=== PATIENT | male | born 1950 | race Caucasian/White ===

== ENCOUNTER 2018-10-25 10:42 | Outpatient (CLI) | payer MEDICARE, MEDICAID ==
--- NOTE | 2018-10-25 14:35 | PET ---
Radionucleotide PET scan with CT attenuation correction HISTORY: Left lung cancer. Right lung nodule. COMPARISON: CT chest from [facility] dated 06/20/2018. FINDINGS: Physiologic uptake of radiotracer throughout the enteric system and along each urinary trac t. Increased muscular uptake is present at the right posterior neck and along the right mid to lower back posterior paraspinal musculature. No hypermetabolic nodules are apparent within the right lower lobe in region of abnormality on prior CT chest. There is mild residual scarring in the right lower lobe where a gas and fluid containing cyst was present on the previous CT. The cyst has resolved. No hypermetabolic activity. Noncontrast CT attenuation correction images best demonstrate left pneumonectomy with small amount of residual left pleural fluid and pleural thickening. Calcification throughout the arterial structures. Prominent degenerative changes lumbar spine. IMPRESSION: No evidence of recurrent or metastatic neoplasm. The small nodule within the right lower lobe is no longer visible. The gas and fluid containing cysti c structure of the right lower lobe has resolved scarring. Atherosclerosis. Status post left pneumonectomy.
== END 2018-10-25 10:43 | disposition home or self-care (01) ==
LOC: PET 10:42
DX: C34.32 Malignant neoplasm of lower lobe, left bronchus or lung (principal); R91.1 Solitary pulmonary nodule; I70.0 Atherosclerosis of aorta; Z90.2 Acquired absence of lung [part of]
CPT/HCPCS: 78815; A9552

== ENCOUNTER 2020-02-02 09:42 | Outpatient (CLI) | payer MEDICARE, MEDICAID ==
--- NOTE | 2020-02-02 11:28 | PET ---
EXAM: PET/CT HISTORY: History of lung cancer, shortness of breath and chronic bronchitis TECHNIQUE: PET scanning with CT attenuation correction was performed from the base of the brain to the proximal thighs following the intravenous administration of 12.1 millicuries [id number]. CT images were obtained for attenuation correction purposes. COMPARISON: PET/CT dated October 25, [address] of the thorax dated June 20, 2018 FINDINGS: Biodistribution:The biodistribution for the examination is acceptable. There is some mild misregistra tion of the head images with a CT images due to patient motion. [id number] background skeletal muscle uptake is evident particularly within the upper neck and laryngeal region likely due to muscular activity. Head and neck: There is appropriate background activity within the brain. No hypermetabolic lymphaden opathy is evident. There is a focus of increased hypermetabolic uptake involving the upper midline soft palate near the region of the uvula with a peak activity of 6.08 and a mean activity of 5.23. Thorax: No hypermetabolic pulmonary lesion, pleural effusion or lymphadenopathy is present. There is postprocedural change of a left pneumonectomy and stable chronic left-sided pleural effusion. No hypermetabolic activity is seen involving the left thorax. There is been complete resolution of the s carlike opacity seen within the right lower lobe. Abdomen and pelvis: There is expected background activity within the GI and systems. No hypermetab olic mass, lymphadenopathy or ascites is present. Osseous structures and skin: No hypermetabolic skin or osseous lesion is identified. IMPRESSION: 1. No hypermetabolic pulmonary nodule or pleural effusion is demonstrated. There is stable postproced ural change of a complete left pneumonectomy with chronic left-sided pleural effusion. No evidence to suggest hypermetabolic metastatic disease. 2. New focus of hypermetabolic uptake involving the midline soft palate, near the uvula, may reflect a focal area of a pharyngitis. Pharyngeal malignant lesion cannot be entirely excluded. Recommend correlation with direct visualization.
== END 2020-02-02 09:43 | disposition home or self-care (01) ==
LOC: PET 09:42
DX: J42 Unspecified chronic bronchitis (principal); R06.02 Shortness of breath; J90 Pleural effusion, not elsewhere classified; Z85.118 Personal history of other malignant neoplasm of bronchus and lung; Z90.2 Acquired absence of lung [part of]
CPT/HCPCS: 78815; A9552

== ENCOUNTER 2024-11-30 18:03 | Inpatient (IN) | payer OTHER, MEDICAID ==
[~2024-11-30 18:03] MED LIST: Iopamidol-370 76% 500 ML MDV (1 ML CHARGE) ONE
[2024-11-30] MEDS ORDERED: Magnesium 2 GM/50 ML BAG (IN WATER) ONE (18:22)
[2024-11-30] MEDS ORDERED: Albuterol 2.5 MG (3 mL) NEB ONE (18:22)
[2024-11-30 18:46] LABS: #Basophils 0.04 10x3/uL (0.0-0.2); #Eosinophils 0.05 10x3/uL (0.0-0.7); #Monocytes 0.39 10x3/uL (0.11-0.59); #Neutrophils 10.03 10x3/uL (1.40-6.50); %Basophils 0.3 % (0.0-1.0); %Eosinophils 0.4 % (0.0-10.0); %Lymphocytes 10.5 % (21.0-51.0); %Monocytes 3.3 % (0.0-10.0); %Neutrophils 85.2 % (42.0-75.0); Hematocrit 39.1 % (42.0-52.0); Hemoglobin 12.9 g/dL (14.0-18.0); Mean Corpuscular Hemoglobin 33.5 pg (27.0-31.0); Mean Corpuscular Volume 101.6 fL (78.0-98.0); Platelet Count 220 10x3/uL (130-400); Red Blood Cell (RBC) Count 3.85 mill/uL (4.70-6.10); White Blood Cell (WBC) Count 11.77 10x3/uL (4.8-10.8)
[2024-11-30] MEDS ORDERED: Ketorolac Tromethamine 30 MG (1 mL) VIAL ONE (19:06)
[2024-11-30 19:10] LABS: ALT (SGPT) 9 U/L (Less than 45); AST (SGOT) 16 U/L (11-34); Albumin 3.7 g/dL (3.1-4.5); Alkaline Phosphatase 64 U/L (40-110); Anion Gap 14 mmol/L (10-20); BUN (Urea Nitrogen) 12 mg/dL (8.4-25.7); Bilirubin, Total 0.9 mg/dL (0.3-1.2); Calc. Creatinine Clearance 0 mL/min (70-130); Calcium 8.8 mg/dL (7.8-10.44); Carbon Dioxide 24 mmol/L (23-31); Chloride 98 mmol/L (98-107); Globulin 2.9 g/dL (2.4-3.5); Glucose 101 mg/dL (83-110); Magnesium 1.8 mg/dL (1.6-2.6); Potassium 3.5 mmol/L (3.5-5.1); Sodium 132 mmol/L (136-145)
[2024-11-30] MEDS ORDERED: cefTRIAXone (ROCEPHIN) 1 GM VIAL ONE (19:53)
[2024-11-30] MEDS ORDERED: Azithromycin 500 MG VIAL ONE (20:31)
[2024-11-30] MEDS ORDERED: Ondansetron PF 4 MG/2 ML Vial IVP PRN (21:18)
[2024-11-30 23:11] VITALS: BMI 21.5
[2024-12-01] MEDS ORDERED: Acetaminophen/Codeine 30-300mg Tablet PO PRN (00:21)
[2024-12-01] MEDS: Gabapentin 300 MG CAP PO SCH ×2 (01:46→10:55)
[2024-12-01] MEDS: ALPRAZolam 0.25 MG TAB PO SCH (04:18)
[2024-12-01 05:00] LABS: Hematocrit 30.8 % (42.0-52.0); Hemoglobin 10.2 g/dL (14.0-18.0); Mean Corpuscular Hemoglobin 33.9 pg (27.0-31.0); Mean Corpuscular Volume 102.3 fL (78.0-98.0); Platelet Count 172 10x3/uL (130-400); Red Blood Cell (RBC) Count 3.01 mill/uL (4.70-6.10); White Blood Cell (WBC) Count 4.22 10x3/uL (4.8-10.8)
[2024-12-01 06:16] LABS: Anion Gap 13 mmol/L (10-20); BUN (Urea Nitrogen) 13 mg/dL (8.4-25.7); Calc. Creatinine Clearance 52 mL/min (70-130); Calcium 7.9 mg/dL (7.8-10.44); Carbon Dioxide 23 mmol/L (23-31); Chloride 103 mmol/L (98-107); Glucose 135 mg/dL (83-110); Magnesium 2.3 mg/dL (1.6-2.6); Potassium 4.2 mmol/L (3.5-5.1); Sodium 135 mmol/L (136-145)
[2024-12-01] MEDS: Famotidine 20 MG TAB PO SCH (10:51)
[2024-12-01 14:48] VITALS: BMI 21.5
[2024-12-01] MEDS: cefTRIAXone\\ROCEPHIN 1 GM in Sodium Chloride 0.9% 100 ML IVPB SCH (19:48)
[2024-12-01] MEDS: Enoxaparin 40 MG (0.4 mL) SYRINGE SC SCH (20:55)
[2024-12-01] MEDS: Azithromycin 500 MG in Sodium Chloride 0.9% 250 ML 250 ML IVPB SCH (20:56)
[2024-12-02] MEDS: Lisinopril 20 MG TAB PO SCH (12:06)
[2024-12-03 04:54] LABS: Anion Gap 11 mmol/L (10-20); BUN (Urea Nitrogen) 21 mg/dL (8.4-25.7); Calc. Creatinine Clearance 54 mL/min (70-130); Calcium 8.7 mg/dL (7.8-10.44); Carbon Dioxide 29 mmol/L (23-31); Chloride 98 mmol/L (98-107); Glucose 115 mg/dL (83-110); Potassium 5.0 mmol/L (3.5-5.1); Sodium 133 mmol/L (136-145)
[2024-12-03] MEDS: Lisinopril 20 MG TAB PO SCH (09:35)
[2024-12-03] MEDS: Calcium Carbonate 500 MG ChewTAB PO SCH (22:50)
[2024-12-04] MEDS ORDERED: Hyaluronidase, Human Recomb. 150 UNITS/ML VIAL SC SCH (07:00)
[2024-12-05] MEDS: predniSONE 20 MG TAB PO SCH (08:28)
[2024-12-05] MEDS: Calcium Carbonate 500 MG ChewTAB PO PRN (08:28)
[2024-12-06 04:59] LABS: #Basophils Less than 0.03 10x3/uL (0.0-0.2); #Eosinophils 0.03 10x3/uL (0.0-0.7); #Monocytes 1.44 10x3/uL (0.11-0.59); #Neutrophils 6.22 10x3/uL (1.40-6.50); %Basophils 0.0 % (0.0-1.0); %Eosinophils 0.3 % (0.0-10.0); %Lymphocytes 27.9 % (21.0-51.0); %Monocytes 13.4 % (0.0-10.0); %Neutrophils 58.0 % (42.0-75.0); Hematocrit 39.7 % (42.0-52.0); Hemoglobin 13.5 g/dL (14.0-18.0); Mean Corpuscular Hemoglobin 33.3 pg (27.0-31.0); Mean Corpuscular Volume 97.8 fL (78.0-98.0); Platelet Count 250 10x3/uL (130-400); Red Blood Cell (RBC) Count 4.06 mill/uL (4.70-6.10); White Blood Cell (WBC) Count 10.72 10x3/uL (4.8-10.8)
[2024-12-06 06:10] LABS: Anion Gap 11 mmol/L (10-20); BUN (Urea Nitrogen) 32 mg/dL (8.4-25.7); Calc. Creatinine Clearance 49 mL/min (70-130); Calcium 9.5 mg/dL (7.8-10.44); Carbon Dioxide 28 mmol/L (23-31); Chloride 90 mmol/L (98-107); Glucose 86 mg/dL (83-110); Potassium 4.1 mmol/L (3.5-5.1); Sodium 125 mmol/L (136-145)
[2024-12-07 05:48] LABS: #Basophils Less than 0.03 10x3/uL (0.0-0.2); #Eosinophils 0.03 10x3/uL (0.0-0.7); #Monocytes 1.16 10x3/uL (0.11-0.59); #Neutrophils 5.65 10x3/uL (1.40-6.50); %Basophils 0.0 % (0.0-1.0); %Eosinophils 0.3 % (0.0-10.0); %Lymphocytes 27.9 % (21.0-51.0); %Monocytes 12.2 % (0.0-10.0); %Neutrophils 59.2 % (42.0-75.0); Hematocrit 36.4 % (42.0-52.0); Hemoglobin 12.7 g/dL (14.0-18.0); Mean Corpuscular Hemoglobin 33.8 pg (27.0-31.0); Mean Corpuscular Volume 96.8 fL (78.0-98.0); Platelet Count 255 10x3/uL (130-400); Red Blood Cell (RBC) Count 3.76 mill/uL (4.70-6.10); White Blood Cell (WBC) Count 9.54 10x3/uL (4.8-10.8)
[2024-12-07 06:15] LABS: Anion Gap 13 mmol/L (10-20); BUN (Urea Nitrogen) 37 mg/dL (8.4-25.7); Calc. Creatinine Clearance 53 mL/min (70-130); Calcium 8.5 mg/dL (7.8-10.44); Carbon Dioxide 23 mmol/L (23-31); Chloride 91 mmol/L (98-107); Glucose 79 mg/dL (83-110); Potassium 4.3 mmol/L (3.5-5.1); Sodium 123 mmol/L (136-145)
[2024-12-07 10:53] LABS: Osmolality, Urine 575 mOsm/kg (50-1200)
[2024-12-08 04:40] LABS: #Basophils Less than 0.03 10x3/uL (0.0-0.2); #Eosinophils 0.03 10x3/uL (0.0-0.7); #Monocytes 0.97 10x3/uL (0.11-0.59); #Neutrophils 4.18 10x3/uL (1.40-6.50); %Basophils 0.1 % (0.0-1.0); %Eosinophils 0.4 % (0.0-10.0); %Lymphocytes 33.0 % (21.0-51.0); %Monocytes 12.4 % (0.0-10.0); %Neutrophils 53.5 % (42.0-75.0); Hematocrit 36.3 % (42.0-52.0); Hemoglobin 12.5 g/dL (14.0-18.0); Mean Corpuscular Hemoglobin 33.7 pg (27.0-31.0); Mean Corpuscular Volume 97.8 fL (78.0-98.0); Platelet Count 261 10x3/uL (130-400); Red Blood Cell (RBC) Count 3.71 mill/uL (4.70-6.10); White Blood Cell (WBC) Count 7.82 10x3/uL (4.8-10.8)
[2024-12-08 04:57] LABS: Osmolality, Serum 273 mOsm/kg (280-301)
[2024-12-08 05:09] LABS: Anion Gap 9 mmol/L (10-20); BUN (Urea Nitrogen) 40 mg/dL (8.4-25.7); Calc. Creatinine Clearance 46 mL/min (70-130); Calcium 8.6 mg/dL (7.8-10.44); Carbon Dioxide 27 mmol/L (23-31); Chloride 94 mmol/L (98-107); Glucose 74 mg/dL (83-110); Potassium 4.3 mmol/L (3.5-5.1); Sodium 126 mmol/L (136-145)
[2024-12-08] MEDS: Albumin 25% 25 GM (100 mL) BOT IVPB SCH (10:28)
[2024-12-09 05:31] LABS: Anion Gap 12 mmol/L (10-20); BUN (Urea Nitrogen) 36 mg/dL (8.4-25.7); Calc. Creatinine Clearance 52 mL/min (70-130); Calcium 8.5 mg/dL (7.8-10.44); Carbon Dioxide 25 mmol/L (23-31); Chloride 99 mmol/L (98-107); Glucose 77 mg/dL (83-110); Potassium 4.4 mmol/L (3.5-5.1); Sodium 132 mmol/L (136-145)
[2024-12-09] MEDS: predniSONE 20 MG TAB PO SCH (09:39)
[2024-12-10 05:25] LABS: Anion Gap 10 mmol/L (10-20); BUN (Urea Nitrogen) 32 mg/dL (8.4-25.7); Calc. Creatinine Clearance 50 mL/min (70-130); Calcium 8.5 mg/dL (7.8-10.44); Carbon Dioxide 25 mmol/L (23-31); Chloride 100 mmol/L (98-107); Glucose 79 mg/dL (83-110); Potassium 4.4 mmol/L (3.5-5.1); Sodium 131 mmol/L (136-145)
[2024-12-10 11:51] VITALS: BP 111/86; TEMP 98.2
== END 2024-12-10 14:45 | DRG 189 ==
LOC: ERS 18:03 → INTOOBSV 21:18 → OBSVTOIN 21:18 → 2NO 21:18
PROVIDERS: ADMIT Student in an Organized Health Care Education/Training Program; ATTEND Student in an Organized Health Care Education/Training Program
PROC: 3E03329 Introduction of Other Anti-infective into Peripheral Vein, Percutaneous Approach (ICD-10-PCS; principal; 2024-11-30)
PROC: 30233J1 Transfusion of Nonautologous Serum Albumin into Peripheral Vein, Percutaneous Approach (ICD-10-PCS; 2024-11-30)
DX: J96.01 Acute respiratory failure with hypoxia (principal); I21.A1 Myocardial infarction type 2; J44.1 Chronic obstructive pulmonary disease with (acute) exacerbation; E87.20 Acidosis, unspecified; I47.20 Ventricular tachycardia, unspecified; E22.2 Syndrome of inappropriate secretion of antidiuretic hormone; N17.9 Acute kidney failure, unspecified; G47.00 Insomnia, unspecified; M79.2 Neuralgia and neuritis, unspecified; E03.9 Hypothyroidism, unspecified; F17.210 Nicotine dependence, cigarettes, uncomplicated; F41.9 Anxiety disorder, unspecified; I44.4 Left anterior fascicular block; E86.9 Volume depletion, unspecified; J43.9 Emphysema, unspecified; E87.8 Other disorders of electrolyte and fluid balance, not elsewhere classified; G25.0 Essential tremor; N18.30 Chronic kidney disease, stage 3 unspecified; I12.9 Hypertensive chronic kidney disease with stage 1 through stage 4 chronic kidney disease, or unspecified chronic kidney disease; D63.1 Anemia in chronic kidney disease; F32.A Depression, unspecified; Z85.038 Personal history of other malignant neoplasm of large intestine; Z92.21 Personal history of antineoplastic chemotherapy; Z90.2 Acquired absence of lung [part of]; Z98.890 Other specified postprocedural states
CPT/HCPCS: 36415; 36416; 71045; 71275; 80048; 80053; 80307; 83605; 83735; 83880; 83930; 83935; 84100; 84300; 84443; 84484; 85025; 85027; 87040; 87428; 93005; 93306; 94640; 96365; 96367; 96375; J0456; J0696; J1650; J1885; J2919; J3475; J7030; J7050; J7512; J7611; J7620; P9047; Q0162; Q9967

== ENCOUNTER 2025-02-23 21:37 | Inpatient (IN) | payer OTHER ==
[2025-02-23 22:41] LABS: #Basophils 0.04 10x3/uL (0.0-0.2); #Eosinophils Less than 0.03 10x3/uL (0.0-0.7); #Monocytes 0.91 10x3/uL (0.11-0.59); #Neutrophils 9.18 10x3/uL (1.40-6.50); %Basophils 0.4 % (0.0-1.0); %Eosinophils 0.1 % (0.0-10.0); %Lymphocytes 10.5 % (21.0-51.0); %Monocytes 8.0 % (0.0-10.0); %Neutrophils 80.8 % (42.0-75.0); Hematocrit 37.6 % (42.0-52.0); Hemoglobin 13.2 g/dL (14.0-18.0); Mean Corpuscular Hemoglobin 33.9 pg (27.0-31.0); Mean Corpuscular Volume 96.7 fL (78.0-98.0); Platelet Count 247 10x3/uL (130-400); Red Blood Cell (RBC) Count 3.89 mill/uL (4.70-6.10); White Blood Cell (WBC) Count 11.35 10x3/uL (4.8-10.8)
[2025-02-23 22:58] LABS: ALT (SGPT) 12 U/L (Less than 45); AST (SGOT) 32 U/L (11-34); Albumin 4.4 g/dL (3.1-4.5); Alkaline Phosphatase 75 U/L (40-110); Anion Gap 21 mmol/L (10-20); BUN (Urea Nitrogen) 17 mg/dL (8.4-25.7); Bilirubin, Total 1.6 mg/dL (0.3-1.2); Calc. Creatinine Clearance 0 mL/min (70-130); Calcium 9.8 mg/dL (7.8-10.44); Carbon Dioxide 20 mmol/L (23-31); Chloride 102 mmol/L (98-107); Globulin 3.2 g/dL (2.4-3.5); Glucose 101 mg/dL (83-110); Potassium 4.5 mmol/L (3.5-5.1); Sodium 138 mmol/L (136-145)
[2025-02-23 23:50] LABS: Actual Bicarbonate (HCO3v) 22.2 mEq/L (22-28); Base Excess -2.6 mEq/L (-2.0 to +3.0); Calcium, Ionized (venous) 1.13 mmol/L (1.16-1.32); Chloride (VBG) 100 mmol/L (98-106); Hematocrit-VBG 39 % (42.0-52.0); Hemoglobin (Hb) 13.4 g/dL (12.6-17.4); Potassium (VBG) 3.82 mmol/L (3.70-5.30); Sodium 137 mmol/L (133-146)
[2025-02-24] MEDS ORDERED: Ondansetron PF 4 MG/2 ML Vial IVP PRN (01:45)
[2025-02-24] MEDS ORDERED: Acetaminophen 325 MG TAB PO PRN (01:45)
[2025-02-24] MEDS ORDERED: cefTRIAXone (ROCEPHIN) 1 GM VIAL ONE (02:13)
[2025-02-24 02:22] LABS: #Basophils Less than 0.03 10x3/uL (0.0-0.2); #Eosinophils Less than 0.03 10x3/uL (0.0-0.7); #Monocytes 0.13 10x3/uL (0.11-0.59); #Neutrophils 8.35 10x3/uL (1.40-6.50); %Basophils 0.2 % (0.0-1.0); %Eosinophils 0.0 % (0.0-10.0); %Lymphocytes 6.4 % (21.0-51.0); %Monocytes 1.4 % (0.0-10.0); %Neutrophils 91.7 % (42.0-75.0); Hematocrit 35.2 % (42.0-52.0); Hemoglobin 12.0 g/dL (14.0-18.0); Mean Corpuscular Hemoglobin 33.7 pg (27.0-31.0); Mean Corpuscular Volume 98.9 fL (78.0-98.0); Platelet Count 216 10x3/uL (130-400); Red Blood Cell (RBC) Count 3.56 mill/uL (4.70-6.10); White Blood Cell (WBC) Count 9.11 10x3/uL (4.8-10.8)
[2025-02-24 03:15] LABS: ALT (SGPT) 10 U/L (Less than 45); AST (SGOT) 27 U/L (11-34); Albumin 4.0 g/dL (3.1-4.5); Alkaline Phosphatase 68 U/L (40-110); Anion Gap 16 mmol/L (10-20); BUN (Urea Nitrogen) 19 mg/dL (8.4-25.7); Bilirubin, Total 1.1 mg/dL (0.3-1.2); Calc. Creatinine Clearance 0 mL/min (70-130); Calcium 9.1 mg/dL (7.8-10.44); Carbon Dioxide 21 mmol/L (23-31); Chloride 104 mmol/L (98-107); Globulin 2.8 g/dL (2.4-3.5); Glucose 161 mg/dL (83-110); Potassium 3.6 mmol/L (3.5-5.1); Sodium 137 mmol/L (136-145)
[2025-02-24 04:17] VITALS: BMI 20.7
[2025-02-24] MEDS: cefTRIAXone\\ROCEPHIN 2 GM in Sodium Chloride 0.9% 100 ML IVPB SCH (06:01)
[2025-02-24] MEDS ORDERED: Famotidine 20 MG TAB ONE (08:35)
[2025-02-24] MEDS: Famotidine 20 MG TAB PO SCH (08:40)
[2025-02-24] MEDS: Enoxaparin 40 MG (0.4 mL) SYRINGE SC SCH (08:40)
[2025-02-24] MEDS: Famotidine/PF 20 mg/2ml Vial SLOW IVP SCH (08:41)
[2025-02-24] MEDS ORDERED: Iopamidol-370 76% 500 ML MDV (1 ML CHARGE) ONE (12:03)
[2025-02-24 12:22] LABS: Glucose, Urine (Dipstick) Negative (Negative); Leukocyte Negative (Negative); Protein, Urine (Dipstick) Negative (Neg-Trace); Specific Gravity, Urine 1.020 (1.005-1.030)
[2025-02-24 12:26] LABS: Bacteria/HPF None Seen HPF (None Seen); RBC/HPF 0-3 HPF (0-3); WBC/HPF 0-3 HPF (0-3)
[2025-02-24] MEDS ORDERED: Azithromycin 500 MG VIAL ONE (14:57)
[2025-02-24] MEDS: Azithromycin 500 MG in Sodium Chloride 0.9% 250 ML 250 ML IVPB SCH ×2 (15:21→16:21)
[2025-02-24] MEDS: Mometasone 100 MCG/Formoterol 5 MCG 120 PUFF INHALER INH SCH (18:41)
[2025-02-24] MEDS: Acetaminophen/Codeine 30-300mg Tablet PO PRN (20:31)
[2025-02-25] MEDS: Lisinopril 20 MG TAB PO SCH (09:50)
[2025-02-26] MEDS: Azithromycin 500 MG in Sodium Chloride 0.9% 250 ML 250 ML IVPB SCH (10:24)
[2025-02-26 11:15] VITALS: BP 131/64; TEMP 98.2
== END 2025-02-26 15:30 | disposition home or self-care (01) | DRG 189 ==
LOC: ERS 21:37 → ERHOLD 02-24 01:43 → 2NO 02-24 15:07
PROVIDERS: ADMIT Internal Medicine; ATTEND Internal Medicine
DX: J96.21 Acute and chronic respiratory failure with hypoxia (principal); G93.41 Metabolic encephalopathy; J44.1 Chronic obstructive pulmonary disease with (acute) exacerbation; F32.A Depression, unspecified; E03.9 Hypothyroidism, unspecified; I10 Essential (primary) hypertension; Z85.118 Personal history of other malignant neoplasm of bronchus and lung; Z79.890 Hormone replacement therapy; D64.9 Anemia, unspecified; F39 Unspecified mood [affective] disorder; Z99.81 Dependence on supplemental oxygen; Z98.890 Other specified postprocedural states; F41.9 Anxiety disorder, unspecified; Z87.891 Personal history of nicotine dependence; M79.2 Neuralgia and neuritis, unspecified
CPT/HCPCS: 36415; 70450; 71045; 71275; 80053; 81001; 82805; 83605; 83880; 84145; 84484; 85025; 87040; 93005; 94640; 96365; 96366; 96375; J0456; J0696; J1630; J1650; J2919; J7050; Q9967